=== PATIENT | male | born 1930 | race African-American/Black ===

== ENCOUNTER 2017-02-04 10:03 | Inpatient (IN) ==
[2017-02-04] MEDS ORDERED: ALBUTEROL/IPRATROPIUM 3 ML NEB RESP TX STA (10:37)
[2017-02-04] MEDS ORDERED: methylPREDNISolone SOD SUC 125 MG/2 ML VIAL IV STA (10:37)
[2017-02-04] MEDS ORDERED: methylPREDNISolone SOD SUC 125 MG/2 ML VIAL ONE (10:51)
[2017-02-04 11:40] LABS: Basophils % 0.1 % (0.0-0.8); Eosinophils % 0.2 % (0.00-10.9); Hematocrit 25.3 VOL% (42.0-52.0); Hemoglobin 8.1 GM/DL (14.0-18.0); Immature Granulocytes % 1.5 %; Immature Granulocytes Absolute 0.14 #; Lymphocytes # 1.2 10*3/uL (1.4-4.0); Lymphocytes % 13.3 % (21.2-54.2); Mean Corpuscular Hemoglobin 27 PG (27-34); Mean Corpuscular Volume 85.5 FL (87-102); Monocytes # 0.8 10*3/uL (0.11-0.8); Monocytes % 8.7 % (1.7-12.7); Neutrophils % 76.2 % (38.7-73.9); Platelet Count 151 T/CUMM (130-400); Red Blood Count 2.96 MC/CUMM (3.8-5.5); Red Cell Distribution Width 16.8 % (9.3-17.3); White Blood Count 9.2 T/CUMM (4-12)
[2017-02-04 11:51] LABS: INR 1.2; PT Patient Result 12.5 SECS
[2017-02-04] MEDS ORDERED: FUROSEMIDE 40 MG/4 ML VIAL IV STA (11:55)
[2017-02-04 12:11] LABS: Albumin 3.2 G/DL (3.4-5.0); Bilirubin,Total 0.4 MG/DL (0.2-1.0); Calcium 6.8 MG/DL (8.5-10.1); Magnesium 1.8 MG/DL (1.8-2.4); Osmolality,Calculated 302.5 MOS/KG (273-304); Potassium 5.2 MMOL/L (3.5-5.1); Total Protein 7.6 G/DL (6.4-8.3); Troponin I Only 1.01 NG/ML (0.00-0.045)
[2017-02-04] MEDS ORDERED: FUROSEMIDE 40 MG/4 ML VIAL ONE (12:44)
[2017-02-04] MEDS ORDERED: FUROSEMIDE 20 MG/2 ML VIAL ONE (12:45)
[2017-02-04] MEDS ORDERED: ONDANSETRON 4 MG/2 ML VIAL IV PRN (14:51)
[2017-02-04] MEDS ORDERED: ACETAMINOPHEN 325 MG TABLET PO PRN (14:51)
[2017-02-04] MEDS: FUROSEMIDE 40 MG/4 ML VIAL IV SCH (16:24)
[2017-02-04] MEDS ORDERED: traMADol 50 MG TABLET PO PRN (16:46)
[2017-02-04] MEDS ORDERED: ALBUTEROL 2.5 MG/3 ML NEB RESP TX PRN (17:00)
[2017-02-04] MEDS: WARFARIN 2.5 MG TABLET PO SCH (18:01)
[2017-02-04] MEDS: CARVEDILOL 6.25 MG TABLET PO SCH (21:22)
[2017-02-04 22:16] LABS: CKMB % 2.6 %
[2017-02-04 22:17] LABS: Troponin I Only 0.671 NG/ML (0.00-0.045)
[2017-02-05 00:10] LABS: CKMB % 2.5 %
[2017-02-05 00:15] LABS: Troponin I Only 0.666 NG/ML (0.00-0.045)
[2017-02-05 05:32] LABS: Hematocrit 23.9 VOL% (42.0-52.0); Hemoglobin 7.8 GM/DL (14.0-18.0); Immature Granulocytes % 1.1 %; Immature Granulocytes Absolute 0.08 #; Lymphocytes # 0.5 10*3/uL (1.4-4.0); Lymphocytes % 6.7 % (21.2-54.2); Mean Corpuscular HGB Conc 32.6 GM/DL (32-36); Mean Corpuscular Hemoglobin 27 PG (27-34); Mean Corpuscular Volume 83.6 FL (87-102); Mean Platelet Volume 11.9 FL (9.6-12.0); Monocytes # 0.3 10*3/uL (0.11-0.8); Monocytes % 3.6 % (1.7-12.7); Neutrophils # 6.4 10*3/uL (1.4-7.4); Neutrophils % 88.6 % (38.7-73.9); Platelet Count 156 T/CUMM (130-400); Red Blood Count 2.86 MC/CUMM (3.8-5.5); Red Cell Distribution Width 16.4 % (9.3-17.3); White Blood Count 7.2 T/CUMM (4-12)
[2017-02-05 05:39] LABS: INR 1.2; PT Patient Result 12.7 SECS
[2017-02-05 06:08] LABS: Calcium 6.9 MG/DL (8.5-10.1); Magnesium 1.7 MG/DL (1.8-2.4); Osmolality,Calculated 315.1 MOS/KG (273-304); Potassium 5.8 MMOL/L (3.5-5.1); Risk Ratio 3.27; Thyroid Stimulating Hormone 0.628 uIU/ml (0.358-3.74); VLDL CHOLESTEROL 11.8 MG/DL
[2017-02-05] MEDS: FUROSEMIDE 40 MG/4 ML VIAL IV SCH ×2 (10:29→15:28)
[2017-02-05] MEDS: CARVEDILOL 6.25 MG TABLET PO SCH ×2 (10:29→21:30)
[2017-02-05] MEDS: FERROUS SULFATE 325 MG TABLET PO SCH (10:29)
[2017-02-05] MEDS: ASPIRIN EC 81 MG TABLET PO SCH (10:29)
[2017-02-05] MEDS: amLODIPine 10 MG TABLET PO SCH (10:29)
[2017-02-05] MEDS: PANTOPRAZOLE 40 MG TABLET PO SCH (10:29)
[2017-02-05] MEDS ORDERED: EPOETIN ALFA 10,000 UNIT/1 ML VIAL SUBCUT ONE (14:00)
[2017-02-05] MEDS: CALCIUM CARBONATE CHEW 500 MG TABLET PO SCH ×2 (15:27→21:30)
[2017-02-05] MEDS: WARFARIN 2.5 MG TABLET PO SCH (17:48)
[2017-02-06 06:08] LABS: Basophils % 0.1 % (0.0-0.8); Hematocrit 26.3 VOL% (42.0-52.0); Hemoglobin 8.6 GM/DL (14.0-18.0); Immature Granulocytes Absolute 0.11 #; Lymphocytes # 1.9 10*3/uL (1.4-4.0); Lymphocytes % 17.6 % (21.2-54.2); Mean Corpuscular HGB Conc 32.7 GM/DL (32-36); Mean Corpuscular Hemoglobin 27 PG (27-34); Mean Corpuscular Volume 83.8 FL (87-102); Monocytes # 0.9 10*3/uL (0.11-0.8); Monocytes % 8.3 % (1.7-12.7); Neutrophils # 7.9 10*3/uL (1.4-7.4); Platelet Count 161 T/CUMM (130-400); Red Blood Count 3.14 MC/CUMM (3.8-5.5); Red Cell Distribution Width 16.4 % (9.3-17.3); White Blood Count 10.8 T/CUMM (4-12)
[2017-02-06 06:38] LABS: Calcium 7.4 MG/DL (8.5-10.1); Osmolality,Calculated 308.5 MOS/KG (273-304); Potassium 5.3 MMOL/L (3.5-5.1)
[2017-02-06] MEDS: CALCIUM CARBONATE CHEW 500 MG TABLET PO SCH (08:20)
[2017-02-06] MEDS: amLODIPine 10 MG TABLET PO SCH (08:21)
[2017-02-06] MEDS: FERROUS SULFATE 325 MG TABLET PO SCH (08:21)
[2017-02-06] MEDS: ASPIRIN EC 81 MG TABLET PO SCH (08:21)
[2017-02-06] MEDS: CARVEDILOL 6.25 MG TABLET PO SCH (08:21)
[2017-02-06] MEDS: FUROSEMIDE 40 MG/4 ML VIAL IV SCH (08:21)
[2017-02-06] MEDS: PANTOPRAZOLE 40 MG TABLET PO SCH (08:21)
[2017-02-06 12:17] VITALS: BP 156/73
[2017-02-06] MEDS ORDERED: EPOETIN ALFA 10,000 UNIT/1 ML VIAL SUBCUT ONE (12:51)
[2017-02-08] MEDS ORDERED: EPOETIN ALFA 10,000 UNIT/1 ML VIAL SUBCUT SCH (09:00)
== END 2017-02-06 13:52 | disposition home or self-care (01) | DRG 291 ==
LOC: N.ED 10:03 → N.EDINP 12:17 → SUATTDRO 12:17 → N.TELES 14:26
PROVIDERS: ADMIT Internal Medicine; ATTEND Internal Medicine Infectious Disease

== ENCOUNTER 2017-07-12 08:53 | Inpatient (IN) ==
[2017-07-12 09:46] LABS: Eosinophils # 0.1 10*3/uL (0.0-0.87); Eosinophils % 0.9 % (0.00-10.9); Hematocrit 25.2 VOL% (42.0-52.0); Immature Granulocytes % 0.7 %; Immature Granulocytes Absolute 0.04 #; NRBC # 0.04 10*3/uL
[2017-07-12 09:50] LABS: Basophils % 0.2 % (0.0-0.8); Lymphocytes # 1.1 10*3/uL (1.4-4.0); Lymphocytes % 19.5 % (21.2-54.2); Mean Corpuscular HGB Conc 31.7 GM/DL (32-36); Mean Corpuscular Hemoglobin 27 PG (27-34); Mean Corpuscular Volume 85.7 FL (87-102); Monocytes # 0.6 10*3/uL (0.11-0.8); Monocytes % 10.7 % (1.7-12.7); Neutrophils # 3.8 10*3/uL (1.4-7.4); Platelet Count 152 T/CUMM (130-400); Red Blood Count 2.94 MC/CUMM (3.8-5.5); Red Cell Distribution Width 17.7 % (9.3-17.3); White Blood Count 5.6 T/CUMM (4-12)
[2017-07-12 10:04] LABS: INR 2.4
[2017-07-12 10:05] LABS: PT Patient Result 24.3 SECS
[2017-07-12 10:14] LABS: Alanine Aminotransferase 25 U/L (16-61); Albumin 3.2 G/DL (3.4-5.0); Alkaline Phosphatase 107 U/L (45-117); Aspartate Amino Transferase 42 U/L (0-37); Bilirubin,Total < 0.39 MG/DL (0.2-1.0); Blood Urea Nitrogen 88 MG/DL (7-18); Calcium 6.4 MG/DL (8.5-10.1); Glucose 100 MG/DL (74-106); Osmolality,Calculated 305.4 MOS/KG (273-304); Potassium 4.9 MMOL/L (3.5-5.1); Sodium 140 MMOL/L (136-145); Troponin I Only 0.038 NG/ML (0.00-0.045)
[2017-07-12] MEDS ORDERED: FUROSEMIDE 40 MG/4 ML VIAL IV STA (10:43)
[2017-07-12] MEDS ORDERED: ALBUTEROL/IPRATROPIUM 3 ML NEB RESP TX STA (10:43)
[2017-07-12] MEDS ORDERED: FUROSEMIDE 40 MG/4 ML VIAL ONE (11:05)
[2017-07-12] MEDS ORDERED: ONDANSETRON 4 MG/2 ML VIAL IV PRN (12:39)
[2017-07-12] MEDS ORDERED: DOCUSATE SODIUM 100 MG CAPSULE PO PRN (12:39)
[2017-07-12] MEDS ORDERED: ACETAMINOPHEN 325 MG TABLET PO PRN ×2 (12:39)
[2017-07-12] MEDS ORDERED: MORPHINE 4 MG/1 ML VIAL IV PRN (12:39)
[2017-07-12] MEDS ORDERED: diphenhydrAMINE CAP 25 MG CAPSULE PO PRN (12:39)
[2017-07-12] MEDS ORDERED: guaiFENesin/DM ER 600-30 MG TABLET PO PRN (12:39)
[2017-07-12] MEDS ORDERED: ALBUTEROL 2.5 MG/3 ML NEB RESP TX PRN (12:47)
[2017-07-12] MEDS ORDERED: amLODIPine 10 MG TABLET PO SCH (13:00)
[2017-07-12] MEDS ORDERED: COLCHICINE 0.6 MG TABLET PO SCH (13:00)
[2017-07-12] MEDS ORDERED: FUROSEMIDE 100 MG/10 ML VIAL IV SCH ×2 (13:00→14:30)
[2017-07-12] MEDS: ASPIRIN EC 81 MG TABLET PO SCH (14:36)
[2017-07-12] MEDS: CARVEDILOL 6.25 MG TABLET PO SCH ×2 (14:36→20:33)
[2017-07-12] MEDS: PANTOPRAZOLE 40 MG TABLET PO SCH (14:37)
[2017-07-12] MEDS: FERROUS SULFATE 325 MG TABLET PO SCH (14:37)
[2017-07-12] MEDS: ALBUTEROL/IPRATROPIUM 3 ML NEB RESP TX SCH ×2 (15:12→19:30)
[2017-07-12] MEDS: SODIUM BICARBONATE 650 MG TABLET PO SCH ×2 (15:15→20:33)
[2017-07-12 15:41] LABS: Troponin I Only 0.033 NG/ML (0.00-0.045)
[2017-07-12] MEDS ORDERED: amLODIPine 5 MG TABLET PO SCH (17:17)
[2017-07-12] MEDS: WARFARIN 2.5 MG TABLET PO SCH (17:45)
[2017-07-12] MEDS: metOLazone 5 MG TABLET PO SCH (17:45)
[2017-07-12] MEDS: CALCIUM CARBONATE CHEW 500 MG TABLET PO SCH (17:45)
[2017-07-12] MEDS: FUROSEMIDE 40 MG/4 ML VIAL IV SCH ×2 (18:36→23:13)
[2017-07-12 20:17] LABS: Troponin I Only 0.031 NG/ML (0.00-0.045)
[2017-07-12] MEDS: ENOXAPARIN 30 MG/0.3 ML SYRINGE SUBCUT SCH (20:33)
[2017-07-12] MEDS: COLCHICINE 0.6 MG TABLET PO SCH (20:33)
[2017-07-13] MEDS: FUROSEMIDE 40 MG/4 ML VIAL IV SCH ×3 (05:06→17:24)
[2017-07-13] MEDS: ALBUTEROL/IPRATROPIUM 3 ML NEB RESP TX SCH ×4 (07:09→19:23)
[2017-07-13 08:06] LABS: Basophils % 0.4 % (0.0-0.8); Eosinophils # 0.1 10*3/uL (0.0-0.87); Eosinophils % 1.7 % (0.00-10.9); Hematocrit 24.5 VOL% (42.0-52.0); Hemoglobin 8.1 GM/DL (14.0-18.0); Immature Granulocytes % 0.6 %; Immature Granulocytes Absolute 0.03 #; Lymphocytes # 1.1 10*3/uL (1.4-4.0); Lymphocytes % 24.6 % (21.2-54.2); Mean Corpuscular HGB Conc 33.1 GM/DL (32-36); Mean Corpuscular Hemoglobin 28 PG (27-34); Mean Corpuscular Volume 83.9 FL (87-102); Mean Platelet Volume 12.3 FL (9.6-12.0); Monocytes # 0.6 10*3/uL (0.11-0.8); Monocytes % 12.1 % (1.7-12.7); NRBC # 0.07 10*3/uL; Neutrophils # 2.8 10*3/uL (1.4-7.4); Neutrophils % 60.6 % (38.7-73.9); Platelet Count 160 T/CUMM (130-400); Red Blood Count 2.92 MC/CUMM (3.8-5.5); Red Cell Distribution Width 17.5 % (9.3-17.3); White Blood Count 4.6 T/CUMM (4-12)
[2017-07-13 08:32] LABS: Calcium 6.5 MG/DL (8.5-10.1); Osmolality,Calculated 304.5 MOS/KG (273-304); Potassium 4.5 MMOL/L (3.5-5.1); Risk Ratio 3.37; Thyroid Stimulating Hormone 1.25 uIU/ml (0.358-3.74); VLDL CHOLESTEROL 18.2 MG/DL
[2017-07-13] MEDS: CALCIUM CARBONATE CHEW 500 MG TABLET PO SCH ×3 (08:40→17:24)
[2017-07-13] MEDS: ASPIRIN EC 81 MG TABLET PO SCH (08:40)
[2017-07-13] MEDS: metOLazone 5 MG TABLET PO SCH (08:40)
[2017-07-13] MEDS: PANTOPRAZOLE 40 MG TABLET PO SCH (08:40)
[2017-07-13] MEDS: FERROUS SULFATE 325 MG TABLET PO SCH (08:40)
[2017-07-13] MEDS: CARVEDILOL 6.25 MG TABLET PO SCH (08:40)
[2017-07-13] MEDS: SODIUM BICARBONATE 650 MG TABLET PO SCH ×2 (08:40→21:15)
[2017-07-13] MEDS ORDERED: ISOSORBIDE MONONITRATE 20 MG TABLET PO SCH (17:18)
[2017-07-13] MEDS: WARFARIN 2.5 MG TABLET PO SCH (17:24)
[2017-07-13] MEDS: CARVEDILOL 12.5 MG TABLET PO SCH (21:14)
[2017-07-13] MEDS: COLCHICINE 0.6 MG TABLET PO SCH (21:14)
[2017-07-13] MEDS: ISOSORBIDE MONONITRATE 20 MG TABLET PO SCH (21:15)
[2017-07-13] MEDS: ENOXAPARIN 30 MG/0.3 ML SYRINGE SUBCUT SCH (21:17)
[2017-07-14] MEDS: FUROSEMIDE 40 MG/4 ML VIAL IV SCH ×4 (00:17→17:15)
[2017-07-14 07:06] LABS: INR 2.3
[2017-07-14 07:12] LABS: PT Patient Result 23.1 SECS
[2017-07-14 07:13] LABS: Basophils % 0.2 % (0.0-0.8); Eosinophils # 0.1 10*3/uL (0.0-0.87); Eosinophils % 2.2 % (0.00-10.9); Hematocrit 22.8 VOL% (42.0-52.0); Immature Granulocytes % 0.4 %; Immature Granulocytes Absolute 0.02 #; Lymphocytes # 1.2 10*3/uL (1.4-4.0); Lymphocytes % 25.3 % (21.2-54.2); Mean Corpuscular HGB Conc 33.3 GM/DL (32-36); Mean Corpuscular Hemoglobin 28 PG (27-34); Mean Corpuscular Volume 83.8 FL (87-102); Mean Platelet Volume 11.7 FL (9.6-12.0); Monocytes # 0.5 10*3/uL (0.11-0.8); Monocytes % 11.2 % (1.7-12.7); NRBC # 0.05 10*3/uL; Neutrophils # 2.8 10*3/uL (1.4-7.4); Neutrophils % 60.7 % (38.7-73.9); Platelet Count 147 T/CUMM (130-400); Red Blood Count 2.72 MC/CUMM (3.8-5.5); Red Cell Distribution Width 17.7 % (9.3-17.3); White Blood Count 4.6 T/CUMM (4-12)
[2017-07-14 07:16] LABS: Hemoglobin 7.6 GM/DL (14.0-18.0)
[2017-07-14] MEDS: ALBUTEROL/IPRATROPIUM 3 ML NEB RESP TX SCH ×4 (07:16→19:55)
[2017-07-14 07:32] LABS: Calcium 6.8 MG/DL (8.5-10.1); Osmolality,Calculated 300.8 MOS/KG (273-304); Potassium 4.2 MMOL/L (3.5-5.1)
[2017-07-14] MEDS ORDERED: EPOETIN ALFA 10,000 UNIT/1 ML VIAL SUBCUT SCH (09:00)
[2017-07-14] MEDS: metOLazone 5 MG TABLET PO SCH (09:25)
[2017-07-14] MEDS: PANTOPRAZOLE 40 MG TABLET PO SCH (09:26)
[2017-07-14] MEDS: SODIUM BICARBONATE 650 MG TABLET PO SCH ×2 (09:26→21:22)
[2017-07-14] MEDS: CARVEDILOL 12.5 MG TABLET PO SCH ×2 (09:26→21:22)
[2017-07-14] MEDS: ISOSORBIDE MONONITRATE 20 MG TABLET PO SCH ×2 (09:26→14:30)
[2017-07-14] MEDS: FERROUS SULFATE 325 MG TABLET PO SCH (09:26)
[2017-07-14] MEDS: CALCIUM CARBONATE CHEW 500 MG TABLET PO SCH ×3 (09:26→17:15)
[2017-07-14] MEDS: ASPIRIN EC 81 MG TABLET PO SCH (09:37)
[2017-07-14] MEDS ORDERED: DIGOXIN 0.5 MG/2 ML AMP IV ONE (16:33)
[2017-07-14] MEDS: WARFARIN 2.5 MG TABLET PO SCH (17:15)
[2017-07-14] MEDS: COLCHICINE 0.6 MG TABLET PO SCH (21:22)
[2017-07-14] MEDS: ENOXAPARIN 30 MG/0.3 ML SYRINGE SUBCUT SCH (21:22)
[2017-07-15] MEDS: FUROSEMIDE 40 MG/4 ML VIAL IV SCH ×3 (05:22→13:49)
[2017-07-15 06:00] LABS: Basophils % 0.2 % (0.0-0.8); Eosinophils # 0.1 10*3/uL (0.0-0.87); Eosinophils % 1.9 % (0.00-10.9); Hemoglobin 7.3 GM/DL (14.0-18.0); Immature Granulocytes % 0.9 %; Immature Granulocytes Absolute 0.04 #; Lymphocytes % 20.5 % (21.2-54.2); Mean Corpuscular HGB Conc 31.7 GM/DL (32-36); Mean Corpuscular Hemoglobin 27 PG (27-34); Mean Corpuscular Volume 84.2 FL (87-102); Mean Platelet Volume 12.1 FL (9.6-12.0); Monocytes # 0.5 10*3/uL (0.11-0.8); Monocytes % 10.5 % (1.7-12.7); NRBC # 0.04 10*3/uL; Neutrophils # 3.1 10*3/uL (1.4-7.4); Platelet Count 156 T/CUMM (130-400); Red Blood Count 2.73 MC/CUMM (3.8-5.5); Red Cell Distribution Width 17.2 % (9.3-17.3); White Blood Count 4.7 T/CUMM (4-12)
[2017-07-15 06:06] LABS: INR 2.5
[2017-07-15 06:14] LABS: PT Patient Result 25.8 SECS
[2017-07-15 06:28] LABS: Osmolality,Calculated 295.2 MOS/KG (273-304); Potassium 3.7 MMOL/L (3.5-5.1)
[2017-07-15] MEDS: ALBUTEROL/IPRATROPIUM 3 ML NEB RESP TX SCH ×3 (07:38→15:21)
[2017-07-15] MEDS ORDERED: SODIUM CHLORIDE 0.9% 1,000 ML IV PRN (08:27)
[2017-07-15] MEDS: ISOSORBIDE MONONITRATE 20 MG TABLET PO SCH ×2 (09:03→16:20)
[2017-07-15] MEDS: metOLazone 5 MG TABLET PO SCH (09:03)
[2017-07-15] MEDS: FERROUS SULFATE 325 MG TABLET PO SCH (09:04)
[2017-07-15] MEDS: ASPIRIN EC 81 MG TABLET PO SCH (09:04)
[2017-07-15] MEDS: CALCIUM CARBONATE CHEW 500 MG TABLET PO SCH ×3 (09:04→16:20)
[2017-07-15] MEDS: CARVEDILOL 12.5 MG TABLET PO SCH (09:04)
[2017-07-15] MEDS: SODIUM BICARBONATE 650 MG TABLET PO SCH (09:04)
[2017-07-15] MEDS: PANTOPRAZOLE 40 MG TABLET PO SCH (09:04)
[2017-07-15] MEDS ORDERED: MAGNESIUM SULF RIDER 2 GM in PREMIX 1 EACH IV ONE (09:13)
[2017-07-15 17:09] VITALS: BP 123/73
== END 2017-07-15 16:30 | disposition home or self-care (01) | DRG 682 ==
LOC: N.ED 08:53 → N.EDINP 10:55 → SUATTDRO 10:55 → N.EDINP 13:02 → N.5E 13:43
PROVIDERS: ADMIT Internal Medicine; ATTEND Internal Medicine

== ENCOUNTER 2017-08-24 11:54 | Inpatient (IN) ==
[2017-08-24 13:49] LABS: Basophils % 0.3 % (0.0-0.8); Eosinophils % 0.6 % (0.00-10.9); Hematocrit 30.7 VOL% (42.0-52.0); Hemoglobin 10.3 GM/DL (14.0-18.0); Immature Granulocytes % 1.2 %; Immature Granulocytes Absolute 0.04 #; Lymphocytes # 0.9 10*3/uL (1.4-4.0); Lymphocytes % 26.4 % (21.2-54.2); Mean Corpuscular HGB Conc 33.6 GM/DL (32-36); Mean Corpuscular Hemoglobin 28 PG (27-34); Mean Corpuscular Volume 81.9 FL (87-102); Mean Platelet Volume 12.7 FL (9.6-12.0); Monocytes # 0.5 10*3/uL (0.11-0.8); Monocytes % 14.6 % (1.7-12.7); Neutrophils # 1.9 10*3/uL (1.4-7.4); Neutrophils % 56.9 % (38.7-73.9); Platelet Count 134 T/CUMM (130-400); Red Blood Count 3.75 MC/CUMM (3.8-5.5); Red Cell Distribution Width 15.5 % (9.3-17.3); White Blood Count 3.3 T/CUMM (4-12)
[2017-08-24 13:58] LABS: INR 1.2; PT Patient Result 12.7 SECS
[2017-08-24 14:02] LABS: Apearance,Urine CLEAR (Clear); Bilirubin,Urine Negative (Negative); Blood, Urine Moderate mg/dL (Negative); Glucose,Urine (UA) Negative (Negative); Hyaline Casts,Urine 1 /LPF (0-3); Ketones,Urine Negative (Negative); Mucus,Urine Occasional /LPF (Occasional); Nitrite,Urine Negative (Negative); Protein,Urine Negative; RBC,Urine 1 /HPF (0-4); Squamous Epithelial Cell,Urine Occasional /HPF (0-10); Urine Color Yellow (Yellow); Urine Specific Gravity 1.012 (1.001-1.035); Urine Urobilinogen < 2.0 EU/DL (0.2-1.0); WBC,Urine 3 /HPF (0-6)
[2017-08-24 14:10] LABS: Albumin 3.2 G/DL (3.4-5.0); Bilirubin,Total 0.4 MG/DL (0.2-1.0); Calcium 7.1 MG/DL (8.5-10.1); Osmolality,Calculated 325.7 MOS/KG (273-304); Potassium 3.2 MMOL/L (3.5-5.1); Total Protein 8.3 G/DL (6.4-8.3)
[2017-08-24] MEDS ORDERED: SODIUM CHLORIDE 0.9% 500 ML IV STA (14:43)
[2017-08-24] MEDS ORDERED: ALBUTEROL 2.5 MG/3 ML NEB RESP TX PRN (15:13)
[2017-08-24] MEDS ORDERED: ALBUTEROL/IPRATROPIUM 3 ML NEB RESP TX PRN (15:13)
[2017-08-24] MEDS ORDERED: MAGNESIUM SULF RIDER 4 GM in PREMIX 1 EACH IV PRN (15:59)
[2017-08-24] MEDS ORDERED: MAGNESIUM SULF RIDER 2 GM in PREMIX 1 EACH IV PRN (15:59)
[2017-08-24 16:35] LABS: Risk Ratio 4.11; VLDL CHOLESTEROL 25.4 MG/DL
[2017-08-24] MEDS ORDERED: LORazepam 2 MG/1 ML VIAL IV PRN (18:26)
[2017-08-24] MEDS ORDERED: MORPHINE 4 MG/1 ML VIAL IV PRN (18:27)
[2017-08-24] MEDS ORDERED: ONDANSETRON 4 MG/2 ML VIAL IV PRN ×2 (18:29→19:44)
[2017-08-24] MEDS: CALCIUM CARBONATE CHEW 500 MG TABLET PO SCH (18:36)
[2017-08-25 05:47] LABS: Basophils % 0.3 % (0.0-0.8); Eosinophils % 0.7 % (0.00-10.9); Hematocrit 27.6 VOL% (42.0-52.0); Hemoglobin 9.3 GM/DL (14.0-18.0); Immature Granulocytes Absolute 0.03 #; Lymphocytes # 0.7 10*3/uL (1.4-4.0); Lymphocytes % 25.8 % (21.2-54.2); Mean Corpuscular HGB Conc 33.7 GM/DL (32-36); Mean Corpuscular Hemoglobin 27 PG (27-34); Mean Corpuscular Volume 81.2 FL (87-102); Monocytes # 0.6 10*3/uL (0.11-0.8); Monocytes % 19.5 % (1.7-12.7); Neutrophils # 1.5 10*3/uL (1.4-7.4); Neutrophils % 52.7 % (38.7-73.9); Platelet Count 121 T/CUMM (130-400); Red Cell Distribution Width 15.3 % (9.3-17.3); White Blood Count 2.9 T/CUMM (4-12)
[2017-08-25 06:11] LABS: Calcium 6.7 MG/DL (8.5-10.1); Osmolality,Calculated 326.7 MOS/KG (273-304); Potassium 2.8 MMOL/L (3.5-5.1)
[2017-08-25 06:17] LABS: Band Neutrophils 2 % (0-10); Eosinophils 1 % (0-10); Lymphocytes 23 % (20-55); Platelet Estimate Normal; Segmented Neutrophils 60 % (50-85); Total Cells Counted 100
[2017-08-25 06:18] LABS: Hypochromasia 1+; Ovalocytes Slight
[2017-08-25] MEDS: COLCHICINE 0.6 MG TABLET PO SCH (09:27)
[2017-08-25] MEDS: CALCIUM CARBONATE CHEW 500 MG TABLET PO SCH ×3 (09:27→16:22)
[2017-08-25] MEDS: FERROUS SULFATE 325 MG TABLET PO SCH (09:27)
[2017-08-25] MEDS: ASPIRIN EC 81 MG TABLET PO SCH (09:28)
[2017-08-25] MEDS: PANTOPRAZOLE 40 MG TABLET PO SCH (09:28)
[2017-08-25] MEDS ORDERED: POTASSIUM CHLORIDE 20 MEQ TABLET PO ONE ×2 (10:37→14:00)
[2017-08-26] MEDS: ASPIRIN EC 81 MG TABLET PO SCH (08:31)
[2017-08-26] MEDS: PANTOPRAZOLE 40 MG TABLET PO SCH (08:31)
[2017-08-26] MEDS: COLCHICINE 0.6 MG TABLET PO SCH (08:31)
[2017-08-26] MEDS: FERROUS SULFATE 325 MG TABLET PO SCH (08:31)
[2017-08-26] MEDS: CALCIUM CARBONATE CHEW 500 MG TABLET PO SCH ×2 (08:31→11:36)
[2017-08-26 11:32] VITALS: BP 103/73
== END 2017-08-26 14:00 | disposition hospice, home (50) | DRG 683 ==
LOC: N.ED 11:54 → N.EDINP 14:54 → SUATTDRO 14:54 → N.EDINP 16:15 → N.5E 16:30
PROVIDERS: ADMIT Internal Medicine; ATTEND Internal Medicine Cardiovascular Disease